=== PATIENT | female | born 1935 | race Caucasian/White ===

== ENCOUNTER 2022-09-27 11:58 | Inpatient (IN) | payer OTHER ==
[~2022-09-27] VITALS: Ht 137.2 cm; Wt 44.5 kg
[2022-09-27 12:11] VITALS: BP_SYST 175
[2022-09-27 12:47] LABS: BASOPHILS % (AUTO) 0.5 % (0.0-2.0); EOSINOPHILS % (AUTO) 0.2 % (0.0-4.0); HEMATOCRIT 29.4 % (36-48); HEMOGLOBIN 9.4 g/dL (12.0-16.0); LYMPHOCYTES # (AUTO) 0.6 K/uL (1.0-5.5); LYMPHOCYTES % (AUTO) 10.9 % (20.5-51.5); MEAN CORPUSCULAR HEMOGLOBIN 26 pg (27-31); MEAN CORPUSCULAR HGB CONC 32 % (32-36); MEAN CORPUSCULAR VOLUME 82 fL (79.0-98.0); MONOCYTES # (AUTO) 0.6 K/uL (0.0-1.0); MONOCYTES % (AUTO) 11.8 % (1.7-9.3); NEUTROPHILS # (AUTO) 3.9 K/uL (1.8-7.7); NEUTROPHILS % (AUTO) 76.6 % (40.0-70.0); PLATELET COUNT (AUTO) 207 K/uL (130-430); RED BLOOD CELL COUNT(AUTO) 3.58 MIL/uL (4.2-6.2); RED CELL DISTRIBUTION WIDTH 18.8 % (9.0-15.0); WHITE BLOOD COUNT (AUTO) 5.1 K/uL (4.8-10.8)
[2022-09-27 13:02] LABS: INR 1.2 (0.8-1.2)
[2022-09-27 13:04] LABS: ALANINE AMINOTRANSFERASE 27 U/L (12-78); ANION GAP 7 (5-15); ASPARTATE AMINOTRANSFERASE 28 U/L (10-37); CHLORIDE 106 mmol/L (98-107); GLUCOSE 109 mg/dL (70-99); TOTAL BILIRUBIN 0.6 mg/dL (0.0-1.0); UREA NITROGEN, BLOOD 22 mg/dL (8-21)
[2022-09-27] MEDS ORDERED: FUROSEMIDE 40 MG/4 ML VIAL IVP ONE (13:30)
[2022-09-27] MEDS ORDERED: SOTALOL HCL 80 MG TABLET PO SCH (13:30)
[2022-09-27] MEDS ORDERED: SPIRONOLACTONE 25 MG TABLET (ALDACTONE) PO ONE (13:30)
[2022-09-27] MEDS ORDERED: APIXABAN 2.5 MG TABLET PO ONE (14:00)
[2022-09-27] MEDS ORDERED: SILDENAFIL CITRATE 20 MG TABLET PO ONE (14:00)
[2022-09-27] MEDS ORDERED: SACUBITRIL/VALSARTAN 24 MG-26 MG 1 TABLET PO ONE (14:00)
[2022-09-27] MEDS: SOTALOL HCL 80 MG TABLET PO SCH (15:14)
[2022-09-27] MEDS ORDERED: BUME2TAB7 PO (16:48)
[2022-09-27] MEDS ORDERED: METO25TA3 PO (16:48)
[2022-09-27] MEDS ORDERED: NEU300 PO (16:48)
[2022-09-27] MEDS ORDERED: APIX2.5T PO (16:48)
[2022-09-27] MEDS ORDERED: AMLO5TAB4 PO (16:48)
[2022-09-27] MEDS ORDERED: TRAM50TA2 PO (16:48)
[2022-09-27] MEDS ORDERED: SILD20TA PO (16:48)
[2022-09-27 18:18] VITALS: BP_SYST 151
[2022-09-27] MEDS ORDERED: ONDANSETRON HCL 4 MG/2 ML VIAL IVP PRN (19:45)
[2022-09-27] MEDS ORDERED: LORazepam 2 MG/ML VIAL IVP PRN (19:45)
[2022-09-27] MEDS ORDERED: traMADol HCL HCL 50 MG TABLET (ULTRAM) PO PRN (19:45)
[2022-09-27] MEDS ORDERED: ACETAMINOPHEN 325 MG TABLET PO PRN ×2 (19:45→20:00)
[2022-09-27 20:30] VITALS: BP_SYST 135
[2022-09-27] MEDS: ZOLPIDEM TARTRATE 5 MG TABLET PO PRN (23:16)
[2022-09-27] MEDS: NORMAL SALINE 5 ML DISP.SYRIN IVF SCH (23:17)
[2022-09-27] MEDS: SILDENAFIL CITRATE 20 MG TABLET PO SCH (23:17)
[2022-09-28] VITALS (9 sets, daily range): BP systolic 107–145
[2022-09-28] MEDS: NORMAL SALINE 5 ML DISP.SYRIN IVF SCH ×3 (05:28→20:49)
[2022-09-28 06:28] LABS: BASOPHILS % (AUTO) 0.8 % (0.0-2.0); EOSINOPHILS % (AUTO) 0.6 % (0.0-4.0); HEMATOCRIT 29.3 % (36-48); HEMOGLOBIN 9.5 g/dL (12.0-16.0); LYMPHOCYTES # (AUTO) 0.6 K/uL (1.0-5.5); LYMPHOCYTES % (AUTO) 10.2 % (20.5-51.5); MEAN CORPUSCULAR HEMOGLOBIN 26 pg (27-31); MEAN CORPUSCULAR HGB CONC 33 % (32-36); MEAN CORPUSCULAR VOLUME 81 fL (79.0-98.0); MONOCYTES # (AUTO) 0.7 K/uL (0.0-1.0); MONOCYTES % (AUTO) 11.4 % (1.7-9.3); NEUTROPHILS # (AUTO) 4.4 K/uL (1.8-7.7); PLATELET COUNT (AUTO) 202 K/uL (130-430); RED BLOOD CELL COUNT(AUTO) 3.63 MIL/uL (4.2-6.2); RED CELL DISTRIBUTION WIDTH 18.8 % (9.0-15.0); WHITE BLOOD COUNT (AUTO) 5.7 K/uL (4.8-10.8)
[2022-09-28 06:52] LABS: ALANINE AMINOTRANSFERASE 23 U/L (12-78); ALBUMIN 2.5 g/dL (3.4-4.8); ANION GAP 9 (5-15); ASPARTATE AMINOTRANSFERASE 24 U/L (10-37); CALCIUM 8.6 mg/dL (8.4-11.0); CHLORIDE 105 mmol/L (98-107); CREATININE 0.92 mg/dL (0.55-1.30); GLUCOSE 90 mg/dL (70-99); PHOSPHORUS 3.1 mg/dL (2.7-4.5); TOTAL BILIRUBIN 0.6 mg/dL (0.0-1.0); UREA NITROGEN, BLOOD 16 mg/dL (8-21)
[2022-09-28] MEDS: SACUBITRIL/VALSARTAN 24 MG-26 MG 1 TABLET PO SCH ×2 (08:27→20:49)
[2022-09-28] MEDS: SILDENAFIL CITRATE 20 MG TABLET PO SCH ×3 (08:27→20:49)
[2022-09-28] MEDS: APIXABAN 2.5 MG TABLET PO SCH ×2 (08:30→20:49)
[2022-09-28] MEDS ORDERED: POTASSIUM CHLORIDE 20 MEQ TAB.PRT.SR PO ONE (10:45)
[2022-09-28] MEDS ORDERED: ADENOSINE 6MG/2ML VIAL IVP ONE ×2 (15:50→16:15)
[2022-09-28] MEDS ORDERED: ADENOSINE 6MG/2ML VIAL ONE (16:02)
[2022-09-28] MEDS ORDERED: dilTIAZem HCL IVP 5 MG/ML VIAL ONE (16:09)
[2022-09-28] MEDS ORDERED: dilTIAZem HCL IVP 5 MG/ML VIAL IVP ONE ×2 (16:15→20:45)
[2022-09-28] MEDS ORDERED: DILTIAZEM HCL 30 MG TABLET PO ONE (16:45)
[2022-09-28] MEDS ORDERED: POTASSIUM CHLORIDE 40 MEQ in D5W 250 ML IV ONE (17:00)
[2022-09-28] MEDS: DILTIAZEM HCL 30 MG TABLET PO SCH ×2 (18:16→23:18)
[2022-09-29] VITALS (24 sets, daily range): BP systolic 99–176
[2022-09-29] MEDS: NORMAL SALINE 5 ML DISP.SYRIN IVF SCH ×3 (05:22→17:05)
[2022-09-29 05:44] LABS: BASOPHILS % (AUTO) 0.7 % (0.0-2.0); EOSINOPHILS # (AUTO) 0.1 K/uL (0.0-0.4); EOSINOPHILS % (AUTO) 1.3 % (0.0-4.0); HEMATOCRIT 29.1 % (36-48); HEMOGLOBIN 9.6 g/dL (12.0-16.0); LYMPHOCYTES # (AUTO) 0.7 K/uL (1.0-5.5); LYMPHOCYTES % (AUTO) 11.6 % (20.5-51.5); MEAN CORPUSCULAR HEMOGLOBIN 27 pg (27-31); MEAN CORPUSCULAR HGB CONC 33 % (32-36); MEAN CORPUSCULAR VOLUME 82 fL (79.0-98.0); MONOCYTES # (AUTO) 0.7 K/uL (0.0-1.0); MONOCYTES % (AUTO) 11.6 % (1.7-9.3); NEUTROPHILS # (AUTO) 4.5 K/uL (1.8-7.7); NEUTROPHILS % (AUTO) 74.8 % (40.0-70.0); PLATELET COUNT (AUTO) 218 K/uL (130-430); RED BLOOD CELL COUNT(AUTO) 3.57 MIL/uL (4.2-6.2); RED CELL DISTRIBUTION WIDTH 18.5 % (9.0-15.0)
[2022-09-29] MEDS: DILTIAZEM HCL 30 MG TABLET PO SCH ×3 (06:06→20:41)
[2022-09-29 06:15] LABS: ANION GAP 5 (5-15); CALCIUM 8.4 mg/dL (8.4-11.0); CHLORIDE 104 mmol/L (98-107); GLUCOSE 96 mg/dL (70-99); UREA NITROGEN, BLOOD 16 mg/dL (8-21)
[2022-09-29] MEDS: DIPHENHYDRAMINE HCL 25 MG CAPSULE PO PRN ×2 (06:42→13:34)
[2022-09-29] MEDS: SILDENAFIL CITRATE 20 MG TABLET PO SCH ×3 (08:28→20:39)
[2022-09-29] MEDS: APIXABAN 2.5 MG TABLET PO SCH ×2 (08:29→20:39)
[2022-09-29] MEDS: SACUBITRIL/VALSARTAN 24 MG-26 MG 1 TABLET PO SCH ×2 (08:29→20:38)
[2022-09-29] MEDS ORDERED: SODIUM POLYSTYRENE SULFONATE 15 GM/60 ML UDBTL PO ONE ×2 (09:15→09:45)
[2022-09-29] MEDS: SOTALOL HCL 80 MG TABLET PO SCH (15:47)
[2022-09-29] MEDS: ZOLPIDEM TARTRATE 5 MG TABLET PO PRN (20:39)
[2022-09-30] VITALS (20 sets, daily range): BP systolic 98–147
[2022-09-30] MEDS: DILTIAZEM HCL 30 MG TABLET PO SCH ×4 (01:01→17:24)
[2022-09-30 05:53] LABS: BASOPHILS % (AUTO) 0.3 % (0.0-2.0); EOSINOPHILS % (AUTO) 0.8 % (0.0-4.0); HEMATOCRIT 31.8 % (36-48); HEMOGLOBIN 10.3 g/dL (12.0-16.0); LYMPHOCYTES # (AUTO) 0.5 K/uL (1.0-5.5); LYMPHOCYTES % (AUTO) 9.7 % (20.5-51.5); MEAN CORPUSCULAR HEMOGLOBIN 26 pg (27-31); MEAN CORPUSCULAR HGB CONC 32 % (32-36); MEAN CORPUSCULAR VOLUME 81 fL (79.0-98.0); MONOCYTES # (AUTO) 0.6 K/uL (0.0-1.0); MONOCYTES % (AUTO) 11.1 % (1.7-9.3); NEUTROPHILS # (AUTO) 4.1 K/uL (1.8-7.7); NEUTROPHILS % (AUTO) 78.1 % (40.0-70.0); PLATELET COUNT (AUTO) 233 K/uL (130-430); RED BLOOD CELL COUNT(AUTO) 3.92 MIL/uL (4.2-6.2); WHITE BLOOD COUNT (AUTO) 5.3 K/uL (4.8-10.8)
[2022-09-30] MEDS: NORMAL SALINE 5 ML DISP.SYRIN IVF SCH ×3 (06:15→22:08)
[2022-09-30 06:32] LABS: ALANINE AMINOTRANSFERASE 26 U/L (12-78); ALBUMIN 2.9 g/dL (3.4-4.8); ANION GAP 7 (5-15); ASPARTATE AMINOTRANSFERASE 24 U/L (10-37); CALCIUM 8.8 mg/dL (8.4-11.0); CHLORIDE 102 mmol/L (98-107); GLUCOSE 101 mg/dL (70-99); TOTAL BILIRUBIN 0.6 mg/dL (0.0-1.0); UREA NITROGEN, BLOOD 8 mg/dL (8-21)
[2022-09-30] MEDS: APIXABAN 2.5 MG TABLET PO SCH ×2 (09:08→22:10)
[2022-09-30] MEDS: SILDENAFIL CITRATE 20 MG TABLET PO SCH ×3 (09:08→22:08)
[2022-09-30] MEDS: SACUBITRIL/VALSARTAN 24 MG-26 MG 1 TABLET PO SCH ×2 (09:09→21:00)
[2022-09-30] MEDS ORDERED: DILTIAZEM HCL 30 MG TABLET PO SCH (18:00)
[2022-09-30] MEDS ORDERED: DILTIAZEM HCL 30 MG TABLET PO ONE (18:15)
[2022-09-30] MEDS: dilTIAZem HCL IVP 5 MG/ML VIAL IVP PRN (18:20)
[2022-10-01] VITALS (8 sets, daily range): BP systolic 116–164
[2022-10-01] MEDS: DILTIAZEM HCL 30 MG TABLET PO SCH ×4 (00:07→17:31)
[2022-10-01] MEDS: NORMAL SALINE 5 ML DISP.SYRIN IVF SCH ×3 (05:58→22:07)
[2022-10-01 06:39] LABS: BASOPHILS % (AUTO) 0.3 % (0.0-2.0); EOSINOPHILS % (AUTO) 0.4 % (0.0-4.0); HEMATOCRIT 31.9 % (36-48); HEMOGLOBIN 10.3 g/dL (12.0-16.0); LYMPHOCYTES # (AUTO) 0.5 K/uL (1.0-5.5); LYMPHOCYTES % (AUTO) 9.3 % (20.5-51.5); MEAN CORPUSCULAR HEMOGLOBIN 26 pg (27-31); MEAN CORPUSCULAR HGB CONC 32 % (32-36); MEAN CORPUSCULAR VOLUME 81 fL (79.0-98.0); MONOCYTES # (AUTO) 0.6 K/uL (0.0-1.0); MONOCYTES % (AUTO) 12.1 % (1.7-9.3); NEUTROPHILS # (AUTO) 4.1 K/uL (1.8-7.7); NEUTROPHILS % (AUTO) 77.9 % (40.0-70.0); PLATELET COUNT (AUTO) 218 K/uL (130-430); RED BLOOD CELL COUNT(AUTO) 3.94 MIL/uL (4.2-6.2); WHITE BLOOD COUNT (AUTO) 5.3 K/uL (4.8-10.8)
[2022-10-01 06:56] LABS: ANION GAP 6 (5-15); CALCIUM 8.6 mg/dL (8.4-11.0); CHLORIDE 104 mmol/L (98-107); CREATININE 0.68 mg/dL (0.55-1.30); GLUCOSE 94 mg/dL (70-99); UREA NITROGEN, BLOOD 6 mg/dL (8-21)
[2022-10-01] MEDS: APIXABAN 2.5 MG TABLET PO SCH ×2 (08:58→21:55)
[2022-10-01] MEDS: SILDENAFIL CITRATE 20 MG TABLET PO SCH ×3 (08:58→21:51)
[2022-10-01] MEDS: SACUBITRIL/VALSARTAN 24 MG-26 MG 1 TABLET PO SCH ×2 (09:20→21:50)
[2022-10-01] MEDS ORDERED: CAR30 PO (10:25)
[2022-10-01] MEDS ORDERED: ZOLP5TAB2 PO (10:25)
[2022-10-01] MEDS ORDERED: SACU1TAB PO (10:25)
[2022-10-01] MEDS ORDERED: SOTA80TA71 PO (10:25)
[2022-10-01] MEDS: dilTIAZem HCL IVP 5 MG/ML VIAL IVP PRN (13:51)
[2022-10-01] MEDS: SOTALOL HCL 80 MG TABLET PO SCH (15:03)
[2022-10-01] MEDS: ZOLPIDEM TARTRATE 5 MG TABLET PO PRN (21:57)
[2022-10-02] VITALS (10 sets, daily range): BP systolic 108–167
[2022-10-02] MEDS: DILTIAZEM HCL 30 MG TABLET PO SCH ×6 (06:00→23:56)
[2022-10-02] MEDS: NORMAL SALINE 5 ML DISP.SYRIN IVF SCH ×3 (06:19→21:18)
[2022-10-02 07:01] LABS: BASOPHILS % (AUTO) 0.6 % (0.0-2.0); EOSINOPHILS % (AUTO) 0.3 % (0.0-4.0); HEMATOCRIT 30.7 % (36-48); HEMOGLOBIN 10.1 g/dL (12.0-16.0); LYMPHOCYTES # (AUTO) 0.8 K/uL (1.0-5.5); LYMPHOCYTES % (AUTO) 14.6 % (20.5-51.5); MEAN CORPUSCULAR HEMOGLOBIN 27 pg (27-31); MEAN CORPUSCULAR HGB CONC 33 % (32-36); MEAN CORPUSCULAR VOLUME 82 fL (79.0-98.0); MONOCYTES # (AUTO) 0.7 K/uL (0.0-1.0); MONOCYTES % (AUTO) 12.8 % (1.7-9.3); NEUTROPHILS # (AUTO) 3.7 K/uL (1.8-7.7); NEUTROPHILS % (AUTO) 71.7 % (40.0-70.0); PLATELET COUNT (AUTO) 231 K/uL (130-430); RED BLOOD CELL COUNT(AUTO) 3.75 MIL/uL (4.2-6.2); RED CELL DISTRIBUTION WIDTH 18.7 % (9.0-15.0); WHITE BLOOD COUNT (AUTO) 5.1 K/uL (4.8-10.8)
[2022-10-02 07:19] LABS: ANION GAP 5 (5-15); CALCIUM 8.8 mg/dL (8.4-11.0); CHLORIDE 104 mmol/L (98-107); CREATININE 0.76 mg/dL (0.55-1.30); GLUCOSE 91 mg/dL (70-99); UREA NITROGEN, BLOOD 8 mg/dL (8-21)
[2022-10-02] MEDS: dilTIAZem HCL IVP 5 MG/ML VIAL IVP PRN (08:44)
[2022-10-02] MEDS: SACUBITRIL/VALSARTAN 24 MG-26 MG 1 TABLET PO SCH ×2 (09:08→21:37)
[2022-10-02] MEDS: SILDENAFIL CITRATE 20 MG TABLET PO SCH ×3 (09:08→21:37)
[2022-10-02] MEDS: APIXABAN 2.5 MG TABLET PO SCH ×2 (09:09→21:57)
[2022-10-02] MEDS ORDERED: DIGOXIN 0.5 MG/2 ML AMP IVP ONE (11:00)
[2022-10-02] MEDS: CARVEDILOL 3.125 MG TABLET (COREG) PO SCH (21:37)
[2022-10-02] MEDS: ZOLPIDEM TARTRATE 5 MG TABLET PO PRN (21:37)
[2022-10-03 00:32] VITALS: BP_SYST 139
[2022-10-03] MEDS: NORMAL SALINE 5 ML DISP.SYRIN IVF SCH ×2 (05:08→15:16)
[2022-10-03 05:53] LABS: BASOPHILS % (AUTO) 0.6 % (0.0-2.0); HEMATOCRIT 30.5 % (36-48); LYMPHOCYTES # (AUTO) 0.7 K/uL (1.0-5.5); LYMPHOCYTES % (AUTO) 14.3 % (20.5-51.5); MEAN CORPUSCULAR HEMOGLOBIN 26 pg (27-31); MEAN CORPUSCULAR HGB CONC 33 % (32-36); MEAN CORPUSCULAR VOLUME 80 fL (79.0-98.0); MONOCYTES # (AUTO) 0.6 K/uL (0.0-1.0); MONOCYTES % (AUTO) 12.4 % (1.7-9.3); NEUTROPHILS # (AUTO) 3.3 K/uL (1.8-7.7); NEUTROPHILS % (AUTO) 71.7 % (40.0-70.0); PLATELET COUNT (AUTO) 206 K/uL (130-430); WHITE BLOOD COUNT (AUTO) 4.6 K/uL (4.8-10.8)
[2022-10-03 06:23] LABS: ALANINE AMINOTRANSFERASE 21 U/L (12-78); ALBUMIN 2.7 g/dL (3.4-4.8); ANION GAP 7 (5-15); ASPARTATE AMINOTRANSFERASE 17 U/L (10-37); CALCIUM 8.4 mg/dL (8.4-11.0); CHLORIDE 105 mmol/L (98-107); CREATININE 0.71 mg/dL (0.55-1.30); GLUCOSE 112 mg/dL (70-99); TOTAL BILIRUBIN 0.4 mg/dL (0.0-1.0); UREA NITROGEN, BLOOD 11 mg/dL (8-21)
[2022-10-03] MEDS: DILTIAZEM HCL 30 MG TABLET PO SCH ×3 (06:25→18:53)
[2022-10-03 08:00] VITALS: BP_SYST 118
[2022-10-03] MEDS ORDERED: POTASSIUM CHLORIDE 20 MEQ TAB.PRT.SR PO ONE (09:45)
[2022-10-03] MEDS: CARVEDILOL 3.125 MG TABLET (COREG) PO SCH (10:34)
[2022-10-03] MEDS: SILDENAFIL CITRATE 20 MG TABLET PO SCH ×2 (10:34→15:15)
[2022-10-03] MEDS: APIXABAN 2.5 MG TABLET PO SCH (10:36)
[2022-10-03] MEDS: SACUBITRIL/VALSARTAN 24 MG-26 MG 1 TABLET PO SCH (10:57)
[2022-10-03 11:27] VITALS: BP_SYST 135
[2022-10-03 15:33] VITALS: BP_SYST 141
[2022-10-03 20:36] VITALS: BP_SYST 119
== END 2022-10-03 21:15 | disposition home health service (06) | DRG 291 ==
LOC: SED 11:58 → STU 14:13 → SIC 09-28 18:49 → STU 09-30 17:41
PROVIDERS: ADMIT Preventive Medicine Preventive Medicine/Occupational Environmental Medicine; ATTEND Preventive Medicine Preventive Medicine/Occupational Environmental Medicine
DX: I11.0 Hypertensive heart disease with heart failure (principal); E43 Unspecified severe protein-calorie malnutrition; J96.00 Acute respiratory failure, unspecified whether with hypoxia or hypercapnia; I50.43 Acute on chronic combined systolic (congestive) and diastolic (congestive) heart failure; I48.20 Chronic atrial fibrillation, unspecified; I47.1 Supraventricular tachycardia; I16.0 Hypertensive urgency; E88.09 Other disorders of plasma-protein metabolism, not elsewhere classified; E87.6 Hypokalemia; I27.20 Pulmonary hypertension, unspecified; I25.10 Atherosclerotic heart disease of native coronary artery without angina pectoris; Z20.822 Contact with and (suspected) exposure to COVID-19; D64.9 Anemia, unspecified; E87.5 Hyperkalemia; R73.9 Hyperglycemia, unspecified; R53.81 Other malaise; D72.819 Decreased white blood cell count, unspecified; Z88.5 Allergy status to narcotic agent; Z79.899 Other long term (current) drug therapy; Z79.01 Long term (current) use of anticoagulants; Z68.22 Body mass index [BMI] 22.0-22.9, adult
CPT/HCPCS: 36415; 71045; 80048; 80053; 80162; 83735; 83880; 84100; 84484; 85025; 85379; 85610-TC; 85730-TC; 87081; 93005; 93306; 93970; 96374; 97116-GP; 97530-GP; 99285; G0378; J0153; J1160; J1940; J3480; J3490; J7060; Q0163